=== PATIENT | female | born 1960 | race Caucasian/White ===

== ENCOUNTER 2024-04-15 05:43 | Day surgery (SDC) | payer MEDICARE ==
[2024-04-14 12:54] VITALS: BMI 40.4
[2024-04-15] MEDS ORDERED: PROPOFOL 20 ML ONE (07:09)
[2024-04-15] MEDS ORDERED: Midazolam HCl 2 mg/2 ml Vial ONE (07:40)
== END 2024-04-15 08:50 | disposition home or self-care (01) ==
LOC: CSHSDC 05:43
PROVIDERS: ATTEND Internal Medicine Gastroenterology
PROC: 0DBM8ZX Excision of Descending Colon, Via Natural or Artificial Opening Endoscopic, Diagnostic (ICD-10-PCS; principal; 2024-04-15)
PROC: 0DBL8ZX Excision of Transverse Colon, Via Natural or Artificial Opening Endoscopic, Diagnostic (ICD-10-PCS; 2024-04-15)
PROC: 0DBN8ZX Excision of Sigmoid Colon, Via Natural or Artificial Opening Endoscopic, Diagnostic (ICD-10-PCS; 2024-04-15)
DX: K58.0 Irritable bowel syndrome with diarrhea (principal); E03.9 Hypothyroidism, unspecified; E78.5 Hyperlipidemia, unspecified; E55.9 Vitamin D deficiency, unspecified; F17.200 Nicotine dependence, unspecified, uncomplicated; F31.9 Bipolar disorder, unspecified; Z98.84 Bariatric surgery status; Z87.59 Personal history of other complications of pregnancy, childbirth and the puerperium; Z79.899 Other long term (current) drug therapy; Z86.010 Personal history of colon polyps; Z88.8 Allergy status to other drugs, medicaments and biological substances; Z88.2 Allergy status to sulfonamides; Z88.5 Allergy status to narcotic agent
CPT/HCPCS: 45380; J2250; J2704; 88305

== ENCOUNTER 2024-11-24 20:11 | Emergency (ER) | payer MEDICARE | END 2024-11-25 00:57 | disposition home or self-care (01) | LOC: CSHERS 20:11 | DX: K59.00 Constipation, unspecified (principal); F17.210 Nicotine dependence, cigarettes, uncomplicated | CPT/HCPCS: 99283 ==

== ENCOUNTER 2024-11-30 23:19 | Emergency (ER) | payer MEDICARE ==
[2024-12-01 00:27] LABS: Bilirubin Neg (Negative); Blood, Urine 50 (Negative); Glucose, Urine (Dipstick) Normal (Negative); Ketone, Urine Negative (Negative); Leukocyte 25 (Negative); Nitrite Negative (Negative); Protein, Urine (Dipstick) Negative (Neg-Trace); Specific Gravity, Urine 1.005 (1.005-1.030); Urobilinogen Normal mg/dL (Less than 2)
[2024-12-01 00:35] LABS: Clarity Clear (Clear)
[2024-12-01 00:41] LABS: Bacteria/HPF 1+ HPF (None Seen); CAUTI Indications for Culture Acute Hematuria; WBC/HPF 0-3 HPF (0-3)
[2024-12-01 00:42] LABS: Urine Culture Reflex No No
[2024-12-01] MEDS ORDERED: Doxycycline 100 MG CAP PO SCH (02:00)
== END 2024-12-01 01:49 | disposition home or self-care (01) ==
LOC: CSHERS 23:19
DX: N39.0 Urinary tract infection, site not specified (principal); K59.00 Constipation, unspecified; F17.210 Nicotine dependence, cigarettes, uncomplicated
CPT/HCPCS: 81001; 99283

== ENCOUNTER 2024-12-04 07:48 | Emergency (ER) | payer MEDICARE ==
[2024-12-04] MEDS ORDERED: Acetaminophen 325 MG TAB ONE ×2 (08:13→16:45)
[2024-12-04] MEDS ORDERED: Magnesium Citrate 300 ML BOT PO SCH (08:30)
[2024-12-04 09:43] LABS: Bilirubin Neg (Negative); Blood, Urine Negative (Negative); Clarity Clear (Clear); Glucose, Urine (Dipstick) Normal (Negative); Ketone, Urine Negative (Negative); Leukocyte Negative (Negative); Nitrite Negative (Negative); Protein, Urine (Dipstick) Negative (Neg-Trace); Urobilinogen Normal mg/dL (Less than 2); pH, Urine 6.5 (5.0-9.0)
[2024-12-04 09:43] LABS: #Basophils Less than 0.03 10x3/uL (0.0-0.2); #Eosinophils 0.05 10x3/uL (0.0-0.5); #Monocytes 0.42 10x3/uL (0.0-1.1); #Neutrophils 2.48 10x3/uL (1.5-8.4); %Basophils 0.5 % (0.0-2.0); %Eosinophils 1.4 % (0.0-6.0); %Lymphocytes 18.1 % (18.0-47.0); %Monocytes 11.5 % (0.0-10.0); %Neutrophils 68.2 % (40.0-75.0); Hematocrit 36.1 % (34.9-44.5); Hemoglobin 11.9 g/dL (12.0-15.5); Mean Corpuscular Hemoglobin 30.3 pg (27.0-33.0); Mean Corpuscular Volume 91.9 fL (81.6-98.3); Mean Platelet Volume 10.9 fL (7.4-10.4); Platelet Count 181 10x3/uL (150-450); RBC Distribution Width 14.2 % (11.5-14.5); Red Blood Cell (RBC) Count 3.93 10x6/uL (3.90-5.03); White Blood Cell (WBC) Count 3.64 10x3/uL (3.5-10.5)
[2024-12-04 09:50] LABS: Bacteria/HPF None Seen HPF (None Seen); CAUTI Indications for Culture Dysuria,urgency,freq; RBC/HPF None Seen HPF (0-3); Squamous Epithelial 0-3 HPF (0-3); WBC/HPF None Seen HPF (0-3)
[2024-12-04 09:51] LABS: Urine Culture Reflex No No
[2024-12-04 10:05] LABS: ALT (SGPT) 26 U/L (Less than 34); AST (SGOT) 41 U/L (11-34); Albumin 3.6 g/dL (3.1-4.5); Alkaline Phosphatase 98 U/L (40-110); Anion Gap 11 mmol/L (10-20); BUN (Urea Nitrogen) 9 mg/dL (9.8-20.1); Bilirubin, Total 0.4 mg/dL (0.3-1.2); Calc. Creatinine Clearance 0 mL/min (70-130); Calcium 9.3 mg/dL (7.8-10.44); Carbon Dioxide 22 mmol/L (23-31); Chloride 111 mmol/L (98-107); Estimated GFR 96; Globulin 2.6 g/dL (2.4-3.5); Glucose 122 mg/dL (80-115); Potassium 3.8 mmol/L (3.5-5.1); Protein, Total 6.2 g/dL (5.8-8.1); Sodium 140 mmol/L (136-145)
[2024-12-04 10:21] LABS: Acetaminophen Less than 10 mcg/mL (Less than 10); Alcohol Less than 10.0 mg/dL (Less than 10); Salicylate Less than 8.0 mg/dL (Less than 8.0)
[2024-12-04 11:15] LABS: Amphetamine Not Detected (NotDetected); Barbiturates Screen Not Detected (NotDetected); Benzodiazepine Screen Not Detected (NotDetected); Cocaine Metabolite Screen Not Detected (NotDetected); Methadone Not Detected (NotDetected); Methamphetamine Not Detected (NotDetected); Opiate Screen Not Detected (NotDetected); Oxycodone Screen Not Detected (NotDetected); Phencyclidine (PCP) Not Detected (NotDetected); THC/Cannabinoid Screen Not Detected (NotDetected); Tricyclic Screen Detected (NotDetected)
[2024-12-04] MEDS ORDERED: Lorazepam 2 MG/ML VIAL ONE (13:42)
[2024-12-04] MEDS ORDERED: Haloperidol Lactate 5 MG/ML VIAL ONE (13:42)
[2024-12-04] MEDS ORDERED: Ondansetron ODT 4 MG TAB ONE (14:20)
== END 2024-12-04 17:09 ==
LOC: CSHERS 07:48
DX: F30.2 Manic episode, severe with psychotic symptoms (principal); E03.9 Hypothyroidism, unspecified; F17.210 Nicotine dependence, cigarettes, uncomplicated; M81.0 Age-related osteoporosis without current pathological fracture; Z79.899 Other long term (current) drug therapy
CPT/HCPCS: 80053; 80178; 80306; 80307 ×2; 81001; 85025; 96372; 99284; J2060; Q0162; 36415; J1630